=== PATIENT | male | born 1970 | race Caucasian/White ===

== ENCOUNTER 2019-10-04 11:45 | Emergency (ER) | payer BC ==
[~2019-10-04] VITALS: Ht 175.3 cm; Wt 108.9 kg
[2019-10-04 11:53] VITALS: BP_SYST 155
[2019-10-04 13:19] VITALS: BP_SYST 155
== END 2019-10-04 13:20 | disposition home or self-care (01) ==
LOC: SED 11:45
DX: M25.462 Effusion, left knee (principal)
CPT/HCPCS: 73564; 99283